=== PATIENT | female | born 1995 | race African-American/Black ===

== ENCOUNTER 2024-04-02 10:27 | Emergency (ER) | payer OTHER ==
[~2024-04-02] VITALS: Ht 172.7 cm; Wt 82.0 kg
[2024-04-02 10:31] VITALS: TEMP 98.5; O2SAT 99
[2024-04-02] MEDS ORDERED: LOPE1TAB46 PO (13:15)
[2024-04-02] MEDS ORDERED: PRED5TAB48 MT (13:15)
[2024-04-02] MEDS ORDERED: ACET-2708 MT (13:15)
[2024-04-02 13:51] VITALS: BP 118/80; PULSE 76; RESP 18; O2SAT 100
== END 2024-04-02 13:52 | disposition home or self-care (01) ==
LOC: ER 10:27
DX: B34.9 Viral infection, unspecified (principal)
CPT/HCPCS: 81025; 87070; 87430; 87804; 99283